=== PATIENT | male | born 1965 | race Caucasian/White ===

== ENCOUNTER 2020-11-23 | Emergency (ER) | payer BC ==
[2020-11-23 01:08] VITALS: BP 137/85; PULSE 90; TEMP 98.7; BMI 32.6
[2020-11-23] MEDS ORDERED: ALPRAZolam 1 MG TABLET PO PRN (01:18)
[2020-11-23] MEDS ORDERED: ALPRAZolam 0.25 MG TABLET ONE (01:54)
== END 2020-11-23 02:24 | disposition home or self-care (01) ==
LOC: JER
DX: F41.0 Panic disorder [episodic paroxysmal anxiety] (principal)
CPT/HCPCS: 99283-25

== ENCOUNTER 2021-02-19 13:18 | Emergency (ER) | payer BC ==
[2021-02-19 13:33] VITALS: BP 148/73; PULSE 71; BMI 28.8
== END 2021-02-19 15:08 | disposition home or self-care (01) ==
LOC: JER 13:18
DX: E11.65 Type 2 diabetes mellitus with hyperglycemia (principal)
CPT/HCPCS: 82962; 99284-25